=== PATIENT | female | born 1990 | race American Indian/Alaskan Native ===

== ENCOUNTER 2018-03-24 21:37 | Emergency (ER) | payer MEDICAID, OTHER ==
[2018-03-24 21:37] VITALS: PULSE 119
[2018-03-24] MEDS ORDERED: Sodium Chloride 0.9% 1,000 ML IV ONE (22:25)
[2018-03-24] MEDS ORDERED: Sodium Chloride 0.9% 1,000 ML ONE (22:37)
[2018-03-24 23:17] LABS: BASO % 0.5 % (0.0-2.0); EOS % 0.1 % (0.0-4.0); LYMPH # 1.7 K/uL (1.0-4.3); MEAN CELL VOLUME 76.2 fL (81.0-99.0); MEAN CORPUSCULAR HEMOGLOBIN 25.9 pg (27.0-31.0); MONO # 0.3 K/uL (0.0-0.8); NEUT # 2.8 K/uL (1.8-7.0); NEUT % 57.4 % (50.0-75.0); NRBC % 0.1 % (0.0-2.0); RBC 4.62 Mil/uL (3.80-5.20); RED CELL DISTRIBUTION WIDTH 14.3 % (11.5-14.5); WHITE BLOOD COUNT 4.9 K/uL (4.8-10.8)
[2018-03-24 23:18] LABS: ALB/GLOB RATIO 1.5 (1.0-2.1); ALBUMIN 4.3 g/dL (3.5-5.0); ALT/SGPT 83 U/L (9-52); AST/SGOT 59 U/L (14-36); BLOOD UREA NITROGEN 15 mg/dL (7-17); GFR AFRICAN-AMERICAN > 60; GFR NON-AFRICAN AMERICAN > 60
[2018-03-24 23:21] LABS: BARBITURATES, UR NEGATIVE (NEGATIVE); BENZODIAZEPINES, UR NEGATIVE (NEGATIVE)
[2018-03-24 23:22] LABS: HCG,QUALITATIVE URINE NEGATIVE (NEGATIVE)
[2018-03-24 23:29] LABS: SQUAMOUS EPITHIAL 5 /hpf (0-5); URINE BILIRUBIN NEGATIVE (NEGATIVE); URINE BLOOD NEGATIVE (NEGATIVE); URINE CLARITY Clear (Clear); URINE COLOR Straw (YELLOW); URINE GLUCOSE (UA) 3+ mg/dL (Normal); URINE LEUKOCYTE ESTERASE TRACE Leu/uL (Negative); URINE PROTEIN NEGATIVE (NEGATIVE); URINE UROBILINOGEN NORMAL mg/dL (0.2-1.0)
[2018-03-24 23:30] LABS: URINE BACTERIA RARE (<OCC)
[2018-03-24 23:40] LABS: OPIATES, UR NEGATIVE (NEGATIVE); PHENCYCLIDINE, UR NEGATIVE (NEGATIVE)
[2018-03-25] MEDS ORDERED: methIMAzole 5 MG TAB PO STA (00:26)
--- NOTE | 2018-03-25 00:28 | C.PDOC ---
History Of Present Illness 27 y/o female brought by her boyfriend to ED for complaints of sudden exomphalos that began this morning. Patient also reports she was hypoglycemic with diminished altered mental status and shivering earlier today but her boyfriend gave her a sandwich and she improved. Patient has Hx of adjustment disorder and DKA. Denies any other physical complaints. Time Seen by Provider: 03/24/18 22:10 Chief Complaint (Nursing): Medical Clearance History Per: Patient History/Exam Limitations: no limitations Onset/Duration Of Symptoms: Hrs Current Symptoms Are (Timing): Still Present Recent travel outside of the [place]: No Past Medical History Reviewed: Historical Data, Nursing Documentation, Vital Signs Vital Signs: Last Vital Signs Temp 99.2 F 03/25/18 00:44 Pulse 115 H 03/25/18 00:44 Resp 18 03/25/18 00:44 BP 152/87 H 03/25/18 00:44 Pulse Ox 98 03/26/18 05:30 - Medical History PMH: Diabetes, HTN, Hyperthyroidism, Hypothyroidism Denies: Chronic Kidney Disease - [facility] Procedures CENTRAL VENOUS CATHETER PLACEMENT WITH GUIDANCE (11/23/13) CONTINUOUS INVASIVE MECHANICAL VENTILATION <96 CONSEC HRS (11/23/13) INJECT/INFUSE NEC (11/15/13) VENOUS CATHETERIZATION NEC (02/19/14) Family History: States: No Known Family Hx - Social History Hx Tobacco Use: No (MOTHER DENIED) Hx Alcohol Use: No (MOTHER DENIED) Hx Substance Use: No (MOTHER DENIED) - Immunization History Hx Tetanus Toxoid Vaccination: No Hx Influenza Vaccination: Yes Hx Pneumococcal Vaccination: No Review Of Systems Constitutional: Negative for: Fever, Chills Gastrointestinal: Positive for: Other (exomphalos). Negative for: Nausea, Vomiting, Abdominal Pain, Diarrhea Genitourinary: Negative for: Dysuria Skin: Negative for: Rash Neurological: Negative for: Weakness, Numbness Physical Exam - Physical Exam Appears: Well, Non-toxic, No Acute Distress, Other (Does not have exomphalos; well hydrated) Skin: Normal Color, Warm, Dry Head: Atraumatic, Normacephalic Eye(s): bilateral: Normal Inspection, PERRL, EOMI Oral Mucosa: Moist Throat: Normal, No Erythema, No Exudate, No Drooling, No Mass Neck: Supple Chest: Symmetrical, No Tenderness Cardiovascular: Rhythm Regular, No Murmur Respiratory: Normal Breath Sounds, No Decreased Breath Sounds, No Rales, No Rhonchi, No Wheezing Gastrointestinal/Abdominal: Soft, No Tenderness, No Distention Extremity: Normal ROM, No Deformity Extremity: Bilateral: Atraumatic, Normal Color And Temperature, Normal ROM Neurological/Psych: Oriented x3, Normal Speech Gait: Steady ED Course And Treatment - Laboratory Results Result Diagrams: 03/24/18 23:02 03/24/18 23:01 Lab Interpretation: Abnormal (TSH very low, UA neg, tox neg.) Urine POC: Negative ECG: Interpreted By Me ECG Rhythm: Sinus Tachycardia ECG Interpretation: Normal, Abnormal Rate From EC O2 Sat by Pulse Oximetry: 98 (RA) Pulse Ox Interpretation: Normal - Radiology CXR: Interpreted by Me CXR Interpretation: Yes: No Acute Disease Progress Note: lopressor 50 mg PO, Methimazole 5 mg PO Reevaluation Time: 00:26 Reassessment Condition: Improved Medical Decision Making Medical Decision Making: Administered Tapazole, IV fluids, and Lopressor. Ordered EKG, CXR, blood work and urinalysis. NO DKA NO Thyroid Storm ok to re-start Methimazole 5 mg PO BID and f/u with her [employer] and other nursing support worker @ [facility] in [place] Has already made f/u appt for this week. Disposition Doctor Will See Patient In The: Office Counseled Patient/Family Regarding: Studies Performed, Diagnosis - Disposition Referrals: [facility] [Outside] [facility] [Outside] [facility] [Outside] Disposition: HOME/ ROUTINE Disposition Time: 00:28 Condition: GOOD Additional Instructions: continue Methimazole 5 mg twice a day follow-up with your Cartridge Feeder this week for further management. NO DKA today NO Thyroid Storm today Prescriptions: Blood-Glucose Control, Normal [Meter-Check] 1 each MC BID #1 each Lancets/Blood Glucose Strips [Fora [id number] Strp-Lnct] 1 each MC BID #60 combo..pkg Methimazole [Tapazole] 5 mg PO BID #60 tablet Instructions: Hyperthyroidism (Overactive Thyroid), Type 2 Diabetes Forms: [facility] ([place] Citizen) - Clinical Impression Clinical Impression: Hyperthyroidism, Diabetes - Scribe Statement The provider has reviewed the documentation as recorded by the Roly Suero All medical record entries made by the Roly were at my direction and personally dictated by me. I have reviewed the chart and agree that the record accurately reflects my personal performance of the history, physical exam, medical decision making, and the department course for this patient. I have also personally directed, reviewed, and agree with the discharge instructions and disposition.
[2018-03-25 00:45] VITALS: BP 152/87; PULSE 115; RESP 18; TEMP 99.2
--- NOTE | 2018-03-25 09:29 | RAD ---
Date of service: 03/24/2018 PROCEDURE: CHEST RADIOGRAPH, 1 VIEW HISTORY: Diabetic COMPARISON: Portable chest 11/27/2013. FINDINGS: LUNGS: No acute pulmonary disease appreciated bilaterally. PLEURA: No pneumothorax or pleural fluid seen. CARDIOVASCULAR: Normal. OSSEOUS STRUCTURES: No significant abnormalities. VISUALIZED UPPER ABDOMEN: Normal. OTHER FINDINGS: None. IMPRESSION: No interval acute cardiopulmonary disease appreciated. Last last
--- NOTE | 2018-03-25 21:28 | CARD ---
APPROVED REPORT Date of service: 03/24/2018 EKG Measurement Heart [id number] [id number] <Conclusion> Sinus tachycardia Otherwise normal ECG
[2018-03-26 05:30] VITALS: O2SAT 98
== END 2018-03-25 00:48 | disposition home or self-care (01) ==
LOC: C.ER 21:37
DX: E05.90 Thyrotoxicosis, unspecified without thyrotoxic crisis or storm (principal); E11.9 Type 2 diabetes mellitus without complications
CPT/HCPCS: 71045; 80053; 80324; 80345; 80346; 80349; 80353; 80358; 80361; 81001; 82948; 83992; 84443; 84703; 85025; 93005; 96360; 99285; J7030